=== PATIENT | female | born 1975 | race Two or more races ===

== ENCOUNTER 2023-01-20 21:44 | Outpatient (CLI) | payer OTHER, BC, SELFPAY | END 2023-01-20 21:45 | disposition home or self-care (01) | LOC: AMB 02-10 16:11 | PROVIDERS: Visit Provider Family Medicine | DX: S99.911A Unspecified injury of right ankle, initial encounter (principal); V40.1XXA Car passenger injured in collision with pedestrian or animal in nontraffic accident, initial encounter; Y92.410 Unspecified street and highway as the place of occurrence of the external cause | CPT/HCPCS: A0425; A0429 ==